=== PATIENT | female | born 1975 | race Caucasian/White ===

== ENCOUNTER 2022-10-16 11:17 | Outpatient (CLI) | payer BC, SELFPAY | END 2022-10-16 11:18 | disposition home or self-care (01) | PROVIDERS: PCP Physician Assistant Medical; Visit Provider Nurse Practitioner Family | DX: L98.9 Disorder of the skin and subcutaneous tissue, unspecified (principal) | CPT/HCPCS: 87070; 87252 ==

== ENCOUNTER 2024-05-17 08:20 | Outpatient (CLI) | payer BC, SELFPAY | END 2024-05-17 08:21 | disposition home or self-care (01) | LOC: NFLDREF 05-18 09:28 | PROVIDERS: PCP Physician Assistant Medical; Referring Provider Physician Assistant Medical; Visit Provider Physician Assistant Medical | DX: R53.83 Other fatigue (principal) | CPT/HCPCS: 80053; 80061; 82306; 84443 ==

== ENCOUNTER 2024-06-04 11:49 | Outpatient (CLI) | payer BC, SELFPAY ==
--- NOTE | 2024-06-27 09:55 | W.PM.SLEEP ---
Sleep Study Details Details Interpreting Provider: Suraj Date of Sleep Study: 06/04/24 Sleep Study Details: STUDY TYPE:? Home unattended ? BMI:? 28.2 ORDERING PROVIDER:Alber Georges INDICATION:? Concerned about sleep apnea ? SLEEP SUMMARY:? A 489 minutes total sleep time RESPIRATORY SUMMARY:? AHI 22.6 PERIODIC LIMB MOVEMENTS OF SLEEP:? Not recall CARDIAC:? Range 50-89, mean 60.3 beats per minute IMPRESSION:? Moderate obstructive sleep apnea RECOMMENDATION: Treatment options include dental appliance CPAP and/or airway expansion surgery. Would favor CPAP or dental appliance.
== END 2024-06-04 11:50 | disposition home or self-care (01) ==
LOC: SLEEP 11:50
PROVIDERS: PCP Physician Assistant Medical; Visit Provider Physician Assistant Medical
DX: G47.33 Obstructive sleep apnea (adult) (pediatric) (principal)
CPT/HCPCS: 95806

== ENCOUNTER 2024-06-18 08:22 | Outpatient (CLI) | payer BC, SELFPAY ==
--- NOTE | 2024-06-18 10:55 | W.ANESCHARGE ---
Anesthesia Charges Start Date/Time Anesthesia Start Date: 06/18/24 Anesthesia Start Time: 09:54 Stop Date/Time Anesthesia Stop Date: 06/18/24 Anesthesia Stop Time: 10:52
--- NOTE | 2024-06-18 11:11 | W.ANESCHARGE ---
Anesthesia Charges Start Date/Time Anesthesia Start Date: 06/18/24 Anesthesia Start Time: 09:54 Stop Date/Time Anesthesia Stop Date: 06/18/24 Anesthesia Stop Time: 10:52
== END 2024-06-18 08:23 | disposition home or self-care (01) ==
LOC: OP CLINIC 08:23
PROVIDERS: PCP Physician Assistant Medical; Visit Provider Surgery
DX: D12.3 Benign neoplasm of transverse colon (principal); Z83.719 Family history of colon polyps, unspecified
CPT/HCPCS: 00811; 45385; 88305; J2704

== ENCOUNTER 2024-06-25 12:04 | Outpatient (CLI) | payer BC, SELFPAY ==
[2024-06-29 17:58] LABS: HPV Source Cervix; HPV, High Risk by TMA Not Detected
== END 2024-06-25 12:05 | disposition home or self-care (01) ==
PROVIDERS: PCP Physician Assistant Medical; Visit Provider Physician Assistant Medical
DX: Z00.00 Encounter for general adult medical examination without abnormal findings (principal); R53.83 Other fatigue; F41.9 Anxiety disorder, unspecified; Z12.4 Encounter for screening for malignant neoplasm of cervix
CPT/HCPCS: 87624; 87625; 88141; 88142

== ENCOUNTER 2024-06-29 14:33 | Emergency (ER) | payer BC, SELFPAY ==
[2024-06-29 14:39] VITALS: BP 117/79; PULSE 70; RESP 20; TEMP 36.7; O2SAT 97
--- NOTE | 2024-06-29 15:05 | CRLHL7_ITS ---
For Patients: As a result of the Century Cures Act, medical imaging exams and procedure reports are released immediately into your electronic medical record. You may view this report before your referring provider. If you have questions, please contact your health care provider. INDICATION: RLQ PAIN, S/P COLOSTOMY 10 DAYS AGO TECHNIQUE: CT abdomen and pelvis acquired with 99 cc Isovue 370 IV contrast. COMPARISON: None. FINDINGS: Lower chest: The visualized lower lungs are aerated. No pleural or pericardial effusion. ABDOMEN: Liver: Normal enhancement. No focal suspicious hepatic lesions. Left hepatic lobe cyst. Gallbladder and biliary: Normal gallbladder without radiopaque stone. Normal caliber bile ducts. Spleen: Normal size and enhancement. Pancreas: Normal enhancement without peripancreatic inflammatory changes or ductal dilatation. Adrenal glands: Normal adrenal glands. Kidneys and ureters: Normal enhancement. No radio-opaque calculi. No hydroureteronephrosis. Subcentimeter hypodensities are too small to characterize however statistically represent cysts. GI tract: The stomach is relatively decompressed. Normal caliber small and large bowel loops. Appendix is not definitively visualized however no secondary signs of acute appendicitis. Moderate volume colonic stool. Vascular structures: Normal caliber abdominal aorta. Lymph nodes: No lymphadenopathy in the abdomen or pelvis by size criteria. Peritoneum: No free air, free fluid, or focal drainable fluid collection. PELVIS: Genitourinary system: Urinary bladder is relatively decompressed. Age-appropriate uterus. Tiny left ovarian cystic focus. SKELETAL STRUCTURES AND SOFT TISSUES: No suspicious lytic or blastic lesions. IMPRESSION: No discrete acute abdominal or pelvic process. No obstruction. No hydroureteronephrosis. Please note that all CT scans at this facility use dose modulation, iterative reconstruction, and/or weight-based dosing when appropriate to reduce radiation dose to as low as reasonably achievable. Dictated by Denis Sargent MD @ 06/29/2024 3:58:11 PM (Electronically Signed)
[2024-06-29 15:29] LABS: Appearance Urine Clear (Clear); Bilirubin Urine Negative (Negative); Blood Urine Negative (Negative); Color Urine Yellow (Yellow); Glucose Urine Negative (Negative); Ketones Urine Negative (Negative); Leukocyte Esterase Urine 1+ (Negative); Nitrite Urine Negative (Negative); Protein Urine Negative (Negative); Urobilinogen Urine 0.2 (0.2-1.0); pH Urine 7.5 (5.0-8.5)
[2024-06-29 15:37] LABS: Basophils Absolute Auto 0.03 K/uL (0.00-0.30); Basophils Percent Auto 0.5 % (0.0-3.0); Eosinophils Absolute Auto 0.39 K/uL (0.00-0.50); Eosinophils Percent Auto 6.1 % (0.0-7.0); Hematocrit 36.9 % (33.0-51.0); Hemoglobin* 12.5 gm/dL (12.0-16.0); Immature Granulocytes Abs Auto 0.01 K/uL (0.00-0.30); Immature Granulocytes Pct Auto 0.2 %; Lymphocytes Absolute Auto 2.06 K/uL (0.90-2.90); Lymphocytes Percent Auto 32.4 % (20-44); Mean Corpuscular HGB Conc 34 gm/dL (32-36); Mean Corpuscular Hemoglobin 31 pg (26-34); Mean Corpuscular Volume 92 fL (80-100); Monocytes Percent Auto 7.6 % (0.0-11.0); Neutrophils Absolute Auto 3.38 K/uL (1.7-7.0); Neutrophils Percent Auto 53.2 % (42.0-72.0); Platelet Count* 325 K/uL (140-440); RDW Coefficient of Variation % 11.3 % (11.5-15.5); White Blood Count* 6.35 K/uL (4.50-11.00)
[2024-06-29 15:40] LABS: Slide Review Reflex No
--- NOTE | 2024-06-29 15:42 | ED.GENADULT ---
HPI - General Adult General Date Seen: 06/29/24 Chief complaint: Constipation Stated complaint: stomach pain post colonoscopy Time Seen by Provider: 06/29/24 14:56 Source: patient Mode of arrival: ambulatory Limitations: no limitations History of Present Illness HPI narrative: Patient is a 49-year-old female presenting to emergency department for constipation abdominal pain. She states she is usually constipated only has bowel movement every 2 or 3 days but states she is now not had a bowel movement in 10 days since her colonoscopy that was done here in [place]. It was just a routine colonoscopy in a couple polyps were found and were shown to be benign she states. She does not have a was since last so spoke to general surgery clinic, who did the procedure, and was recommended to take several different stool softeners and come to the emergency department if she develops abdominal pain. Not long after this she started noticing some mild sharp right lower quadrant abdominal pain so was concerned and came to the emergency department for evaluation. Has been eating and drinking without issues. No associated nausea or vomiting. Pain is tolerable at this time. She describes as a gas pain and intermittent in nature. Denies fevers, chills, lightheadedness, dizziness, chest pain, shortness of breath. No other concerns noted. Related Data Home Medications ?Medication ?Instructions ?Recorded ?Confirmed escitalopram oxalate 20 mg tablet 20 mg PO 04/03/22 06/26/24 multivitamin 1 tab PO QAM 05/14/24 06/29/24 bupropion HCl 300 mg 24 hr tablet, 300 mg PO DAILY 06/25/24 06/26/24 extended release loratadine 10 mg tablet 10 mg PO QDAY 06/25/24 06/29/24 omeprazole 20 mg capsule,delayed 20 mg PO QDAY 06/25/24 06/29/24 release naltrexone 50 mg tablet 25 mg PO DAILY 06/29/24 06/29/24 Previous Rx's ?Medication ?Instructions ?Recorded albuterol sulfate 90 mcg/actuation 2 puff inhalation Q6H PRN asthma 05/14/24 aerosol inhaler (Ventolin HFA) #8.5 grams montelukast 10 mg tablet 10 mg PO QDAY #90 tabs 05/14/24 albuterol sulfate 1.25 mg/3 mL 1.25 mg (3 mL) inhalation Q4-6H 10/28/24 solution for nebulization PRN shortness of breath or wheezing #90 mL Allergies Allergy/AdvReac Type Severity Reaction Status Date / Time erythromycin base Allergy Intermediate Abdominal Verified 06/29/24 15:41 Pain Review of Systems Status of ROS: Reports: 10 or more systems reviewed and unremarkable except as noted in History and below [facility] Medical History Herpes simplex type 2 infection ?B00.9 - Herpesviral infection, unspecified (ICD-10) Anemia ?D64.9 - Anemia, unspecified (ICD-10) Skin lesion ?L98.9 - Disorder of the skin and subcutaneous tissue, unspecified (ICD-10) Palpitations ?R00.2 - Palpitations (ICD-10) Gestational diabetes mellitus (GDM) (03/30/13) ?O24.419 - Gestational diabetes mellitus in , unspecified control (ICD-10) Asthma exacerbation ?J45.901 - Unspecified asthma with (acute) exacerbation (ICD-10) Surgical History H/O lymph node excision ?Z98.890 - Other specified postprocedural states (ICD-10) Family History Father Alcohol dependence Rheumatoid arthritis Mother Breast cancer, Onset Age: 46 Social History Smoking Status: Never smoker Do you use any of these nicotine containing products: None Second hand tobacco smoke exposure: No How often do you have a drink containing alcohol: never AUDIT-C Alcohol total score: 0 Non-prescribed substance use: denies use Little interest or pleasure in doing things: several days Feeling down, depressed, or hopeless: more than half the days Exam Narrative: Exam Narrative: Const: Well-nourished, Well-developed, in mild distress Eyes: PERRL, no conjunctival injection, and symmetrical lids HENT: Atraumatic external nose and ears. Moist mucous membranes. Neck: Symmetric, trachea midline, No thyromegaly. CVS: RRR, No murmurs or gallops. Peripheral pulses 2+ and equal in all extremities RESP: Unlabored respiratory effort. Clear to auscultation bilaterally. GI: Mild right lower quadrant tenderness and right upper quadrant tenderness, Nondistended, No rebound or guarding. MSK:Extremities w/o deformity, Normal Active ROM Skin: Warm, Dry. No rashes or lesions. Neuro: Normal Muscle tone, No focal neurological deficits. Psych: Awake, Alert, & Oriented x3. Appropriate mood and affect. Const: Vital Signs, click to edit/add: Vital Signs - 24 hr 06/29/24 14:39 Temperature 98.1 F Pulse Rate [Right Pulse Oximeter] 70 Respiratory Rate 20 Blood Pressure [Ri ght Upper Arm] 117/79 Pulse Oximetry 97 Oxygen Delivery Me thod Room Air Course Vital Signs Vital signs: Initial Vital Signs Temperature 98.1 F 06/29/24 14:39 Temperature Source Temporal Artery Scan 06/29/24 14:39 Pulse Rate 70 06/29/24 14:39 Pulse Rhythm Regular 06/29/24 14:39 Respiratory Rate 20 06/29/24 14:39 Blood Pressure 117/79 06/29/24 14:39 Blood Pressure Mean 91 06/29/24 14:39 Blood Pressure Position Sitting 06/29/24 14:39 Pulse Oximetry 97 06/29/24 14:39 Oxygen Delivery Method Room Air 06/29/24 14:39 Vital Signs Temperature 98.1 F 06/29/24 14:39 Pulse Rate 70 06/29/24 14:39 Respiratory Rate 20 06/29/24 14:39 Blood Pressure 117/79 06/29/24 14:39 Pulse Oximetry 97 06/29/24 14:39 Oxygen Delivery Method Room Air 06/29/24 14:39 Temperature 98.1 F 06/29/24 14:39 Pulse Rate 70 06/29/24 14:39 Respiratory Rate 20 06/29/24 14:39 Blood Pressure 117/79 06/29/24 14:39 Pulse Oximetry 97 06/29/24 14:39 Oxygen Delivery Method Room Air 06/29/24 14:39 Medical Decision Making MDM Narrative Medical decision making narrative: Patient is a 49-year-old female presenting for constipation and abdominal pain. Differential this time includes constipation, appendicitis, colitis. Seems unlikely to be in SBO or large bowel obstruction. Considering the recent instrumentation there is always possibility of a perforation. She is otherwise stable at this time side do not think emergent x-rays necessary instead we do CT scan with IV contrast for better evaluation. Most do CBC, magnesium, urinalysis, CMP, lipase. Does not want any pain medication or nausea medication at this time. Lab work returned showing no concerning abnormalities. CT scan shows no concerning abnormalities. She is constipated. Is likely what is causing her symptoms. She does describe the pain as gas pains. She has already been informed by her surgeon on what stool softeners she should be taking so I do feel comfortable discharging her home at this time. She is agreeable to this plan. Lab Data Labs: Lab Results 06/29/24 06/29/24 Range/Units 15:06 15:25 WBC 6.35 (4.50-11.00) K/uL RBC 4.00 (4.00-5.20) m/uL Hgb 12.5 (12.0-16.0) gm/dL Hct 36.9 (33.0-51.0) % MCV 92 (80-100) fL MCH 31 (26-34) pg MCHC 34 (32-36) gm/dL RDW Coeff of [place] 11.3 L (11.5-15.5) % Plt Count 325 (140-440) K/uL Neut % (Auto) 53.2 (42.0-72.0) % Lymph % (Auto) 32.4 (20-44) % Pepin % (Auto) 7.6 (0.0-11.0) % Eos % (Auto) 6.1 (0.0-7.0) % Baso % (Auto) 0.5 (0.0-3.0) % Neut # (Auto) 3.38 (1.7-7.0) K/uL Lymph # (Auto) 2.06 (0.90-2.90) K/uL Pepin # (Auto) 0.50 (0.00-0.90) K/UL Eos # (Auto) 0.39 (0.00-0.50) K/uL Baso # (Auto) 0.03 (0.00-0.30) K/uL Abs Immat Gran (auto) 0.01 (0.00-0.30) K/uL Imm/Tot Granulo (auto) 0.2 % Sodium 134 L (135-149) mmol/L Potassium 3.5 L (3.6-5.1) mmol/L Chloride 98 (96-114) mmol/L Carbon Dioxide 30 (20-32) mmol/L Anion Gap 6 L (7-15) mEq/L BUN 16 (7-30) mg/dL Creatinine 0.8 (0.5-1.5) mg/dL Estimated GFR 89 ml/min Glucose 97 (60-115) mg/dL Calcium 9.3 (8.4-10.6) mg/dL Magnesium 2.2 (1.5-2.6) mg/dL Total Bilirubin 0.1 (0.1-1.5) mg/dL AST 33 (12-35) U/L ALT 25 (4-35) U/L Alkaline Phosphatase 86 (40-150) U/L Total Protein 7.8 (6.0-8.3) g/dL Albumin 4.8 (3.3-5.0) g/dL Lipase 59 (23-300) U/L Urine Color Yellow (Yellow) Urine Appearance Clear (Clear) Urine pH 7.5 (5.0-8.5) Ur Specific [place] 1.010 (1.000-1.030) Urine Protein Negative (Negative) Urine Glucose (UA) Negative (Negative) Urine Ketones Negative (Negative) Urine Blood Negative (Negative) Urine Nitrite Negative (Negative) Urine Bilirubin Negative (Negative) Urine Urobilinogen 0.2 (0.2-1.0) Ur Leukocyte Esterase 1+ A (Negative) Urine RBC 0-2 (0-2) Urine WBC 2-5 (0-5) Ur Squamous Epith Cells Few (None-Few) Urine Bacteria None (None) Imaging Data CT scan abdomen pelvis: Attestation: I have reviewed the pertinent imaging results. Radiologist's impression: No discrete acute abdominal or pelvic process. No obstruction. No hydroureteronephrosis. Please note that all CT scans at this facility use dose modulation, iterative reconstruction, and/or weight-based dosing when appropriate to reduce radiation dose to as low as reasonably achievable. Dictated by Denis Sargent MD @ 06/29/2024 3:58:11 PM Discharge Plan Discharge Clinical Impression: Acute constipation Instructions: Constipation (DC) Additional Instructions: Follow of the treatment regimen provided by Dr. Gloria's office for your constipation. I do recommend continuing stool softener until you start having regular bowel movements. Return to emergency department for new or worsening symptoms Prescriptions: No Action escitalopram oxalate 20 mg tablet 20 mg PO Patient Comments: TAKE 1 TABLET BY MOUTH DAILY multivitamin Tablet 1 tab PO QAM albuterol sulfate [Ventolin HFA] 90 mcg/actuation HFA aerosol inhaler 2 puff inhalation Q6H PRN (Reason: asthma) Qty: 8.5 3RF montelukast 10 mg tablet 10 mg PO QDAY Qty: 90 3RF bupropion HCl 300 mg tablet extended release 24 hr 300 mg PO DAILY loratadine 10 mg tablet 10 mg PO QDAY omeprazole 20 mg capsule,delayed release(DR/EC) 20 mg PO QDAY albuterol sulfate 1.25 mg/3 mL solution for nebulization 1.25 mg inhalation Q4-6H PRN (Reason: shortness of breath or wheezing) Qty: 90 3RF naltrexone 50 mg tablet 25 mg PO DAILY Follow Up/Referrals: Tammi Georges PA-C [Primary Care Provider] - Stand Alone [facility] Instructions
[2024-06-29 15:46] LABS: RBC Urine 0-2 (0-2); Squamous Epithelial Cell Urine Few (None-Few)
[2024-06-29 15:55] LABS: Chloride* 98 mmol/L (96-114)
[2024-06-29 15:56] LABS: Albumin* 4.8 g/dL (3.3-5.0); Potassium* 3.5 mmol/L (3.6-5.1); Sodium* 134 mmol/L (135-149)
[2024-06-29 15:58] LABS: Creatinine* 0.8 mg/dL (0.5-1.5); Estimated Glomerular Filt Rate 89 ml/min
[2024-06-29 15:59] LABS: Alanine Aminotransferase* 25 U/L (4-35); Alkaline Phosphatase* 86 U/L (40-150); Anion Gap 6 mEq/L (7-15); Aspartate Amino Transferase* 33 U/L (12-35); Bilirubin Total* 0.1 mg/dL (0.1-1.5); Blood Urea Nitrogen* 16 mg/dL (7-30); Calcium* 9.3 mg/dL (8.4-10.6); Carbon Dioxide* 30 mmol/L (20-32); Glucose* 97 mg/dL (60-115); Lipase* 59 U/L (23-300); Total Protein* 7.8 g/dL (6.0-8.3)
[2024-06-29 16:00] LABS: Magnesium* 2.2 mg/dL (1.5-2.6)
== END 2024-06-29 16:24 | disposition home or self-care (01) ==
LOC: ED 15:11
PROVIDERS: Emergency Provider Student in an Organized Health Care Education/Training Program; PCP Physician Assistant Medical
DX: K59.00 Constipation, unspecified (principal)
CPT/HCPCS: 36415; 74177; 80053; 81001; 83690; 83735; 85025; 87086; 99283; 99284; Q9967